=== PATIENT | male | born 1975 | race Caucasian/White ===

== ENCOUNTER 2016-11-07 16:27 | Inpatient (IN) | payer MEDICAID ==
[~2016-11-07] VITALS: Ht 185.4 cm; Wt 209.0 kg
[~2016-11-07 16:27] MED LIST: KETAMINE INJ 50 MG/ML VIAL IV ONE; LIDOCAINE 2% SYR 5 ML IV ONE; PROPOFOL 50ML PER ML IV ONE
[2016-11-07] MEDS ORDERED: SODIUM CHLORIDE 0.9% 1,000 ML ONE (17:56)
[2016-11-07] MEDS ORDERED: ACETAMINOPHEN 325 MG TAB ONE (17:58)
[2016-11-07] MEDS ORDERED: KETOROLAC 30 MG/ML VIAL ONE (18:05)
[2016-11-07] MEDS ORDERED: LEVOFLOXACIN 500 MG TAB ONE (18:18)
[2016-11-07] MEDS ORDERED: KCL CR 20 MEQ TAB PO ONE (18:59)
[2016-11-07] MEDS ORDERED: DILAUDID 1 MG/ML AMP ONE (19:24)
[2016-11-07] MEDS ORDERED: BISACODYL 10 MG SUPP RECTAL PRN (19:40)
[2016-11-07] MEDS ORDERED: ALPRAZOLAM 0.25 MG TAB PO PRN (19:40)
[2016-11-07] MEDS ORDERED: ALU/MAG/SIM 30 ML UDC PO PRN (19:40)
[2016-11-07] MEDS ORDERED: BISACODYL EC 5 MG TAB PO PRN (19:40)
[2016-11-07] MEDS ORDERED: MAG HYDROX 30 ML UDC PO PRN (19:40)
[2016-11-07] MEDS ORDERED: GUAIFEN/DM 10 ML UDC PO PRN (19:40)
[2016-11-07] MEDS ORDERED: MORPHINE 2 MG/ML SYR IV PRN (19:40)
[2016-11-07] MEDS ORDERED: SALINE FLUSH 10 ML FLUSH PRN (19:40)
[2016-11-07 21:20] VITALS: BP_SYST 134; RESP 20; TEMP 99.2; Ht 185.4 cm; Wt 209.0 kg
[2016-11-07] MEDS ORDERED: Flu Vaccine Quadrivalent 60 MCG/0.5 ML IM.VACC ONE (21:25)
[2016-11-07] MEDS: SODIUM CHLOR 0.9% W/KCL 20MEQ 1,000 ML IV SCH (22:20)
[2016-11-07] MEDS: NEB-XOPENEX 1.25 MG/3 ML INH SCH (23:25)
[2016-11-07 23:28] VITALS: RESP 20
[2016-11-08] VITALS (9 sets, daily range): BP systolic 127–145; RESP 16–18; TEMP 97.2–100.1
[2016-11-08] MEDS: ACETAMINOPHEN 325 MG TAB PO PRN ×2 (03:30→22:12)
[2016-11-08] MEDS: SODIUM CHLORIDE 0.9% FLUSH BAG 500 ML IV SCH (06:08)
[2016-11-08] MEDS: PANTOPRAZOLE 40 MG TAB PO SCH (06:09)
[2016-11-08] MEDS: SALINE FLUSH 10 ML FLUSH SCH ×3 (06:09→20:00)
[2016-11-08] MEDS: MORPHINE 4 MG/ML SYR IV PRN ×5 (06:09→22:49)
[2016-11-08] MEDS: NEB-XOPENEX 1.25 MG/3 ML INH SCH ×4 (07:31→23:34)
[2016-11-08] MEDS ORDERED: MISSING DOSE XX ONE ×3 (08:10→18:50)
[2016-11-08] MEDS ORDERED: KCL CR 20 MEQ TAB PO SCH (09:00)
[2016-11-08] MEDS: CEFTRIAXONE 1 GM in SODIUM CHLORIDE 0.9% 50 ML IV SCH (09:19)
[2016-11-08] MEDS: CHLORTHALIDONE 25 MG TAB PO SCH (09:20)
[2016-11-08] MEDS: CETIRIZINE 10 MG TAB PO SCH (09:20)
[2016-11-08] MEDS: METOPROLOL XL 50 MG TAB PO SCH (09:20)
[2016-11-08] MEDS: Losartan 50 MG TAB PO SCH (09:20)
[2016-11-08] MEDS: MONTELUKAST 10 MG TAB PO SCH (09:20)
[2016-11-08] MEDS: SODIUM CHLOR 0.9% W/KCL 20MEQ 1,000 ML IV SCH ×2 (09:20→22:55)
[2016-11-08] MEDS: FLUTICASONE 0.05% NA BTL NARE EACH SCH ×2 (09:21→20:50)
[2016-11-08] MEDS: AZITHROMYCIN 500 MG in SODIUM CHLORIDE 0.9% 250 ML IV SCH (10:36)
[2016-11-08] MEDS: KCL CR 20 MEQ TAB PO SCH (20:50)
[2016-11-08] MEDS: GUAIFEN/DM 10 ML UDC PO PRN (22:10)
[2016-11-09] VITALS (13 sets, daily range): BP systolic 97–146; RESP 18–22; TEMP 97.6–99.4
[2016-11-09] MEDS: MORPHINE 4 MG/ML SYR IV PRN ×4 (02:56→16:23)
[2016-11-09] MEDS: SODIUM CHLORIDE 0.9% FLUSH BAG 500 ML IV SCH (04:44)
[2016-11-09] MEDS: ACETAMINOPHEN 325 MG TAB PO PRN (04:45)
[2016-11-09] MEDS: PANTOPRAZOLE 40 MG TAB PO SCH (06:26)
[2016-11-09] MEDS: NEB-XOPENEX 1.25 MG/3 ML INH SCH ×2 (07:13→11:52)
[2016-11-09] MEDS ORDERED: MISSING DOSE XX ONE (07:50)
[2016-11-09] MEDS: SALINE FLUSH 10 ML FLUSH SCH (08:00)
[2016-11-09] MEDS: CEFTRIAXONE 1 GM in SODIUM CHLORIDE 0.9% 50 ML IV SCH (08:02)
[2016-11-09] MEDS: METOPROLOL XL 50 MG TAB PO SCH (08:02)
[2016-11-09] MEDS: SODIUM CHLOR 0.9% W/KCL 20MEQ 1,000 ML IV SCH (08:02)
[2016-11-09] MEDS: AZITHROMYCIN 500 MG in SODIUM CHLORIDE 0.9% 250 ML IV SCH (09:06)
[2016-11-09] MEDS: KCL CR 20 MEQ TAB PO SCH (15:11)
[2016-11-09] MEDS: GUAIFEN/DM 10 ML UDC PO PRN (15:48)
[2016-11-09] MEDS: MONTELUKAST 10 MG TAB PO SCH (15:49)
[2016-11-09] MEDS: FLUTICASONE 0.05% NA BTL NARE EACH SCH (15:49)
[2016-11-09] MEDS: Losartan 50 MG TAB PO SCH (15:49)
[2016-11-09] MEDS: CETIRIZINE 10 MG TAB PO SCH (15:49)
[2016-11-09] MEDS: CHLORTHALIDONE 25 MG TAB PO SCH (15:49)
[2016-11-10] MEDS ORDERED: [UNRECOGNIZED DRUG - OTHER] XX SCH (08:00)
== END 2016-11-09 17:38 | disposition home or self-care (01) | DRG 194 ==
LOC: ENRESERVDT → ENRESERVTM → ER 16:27 → EMR 19:40 → ENPENDDIS 19:40 → 3NT 21:03
PROVIDERS: ADMIT Internal Medicine; ATTEND Internal Medicine
PROC: 0B9B8ZX Drainage of Left Lower Lobe Bronchus, Via Natural or Artificial Opening Endoscopic, Diagnostic (ICD-10-PCS; principal; 2016-11-09 13:45)
CPT/HCPCS: 36415; 71020; 78582; 80048; 80053; 83605; 83880; 84145; 84484; 85025; 85610; 85730; 87040; 87071; 87102; 87116; 87205; 87206; 87633; 87804; 88108; 89051; 94640; 94799; 96361; 96374; 96375; 99223; 99232; 99233; 99239